=== PATIENT | female | born 1935 | race Caucasian/White ===

== ENCOUNTER 2024-06-25 23:45 | Emergency (ER) | payer OTHER, SELFPAY ==
[2024-06-25 23:47] VITALS: BP 156/109; BMI 21.9
[2024-06-26] MEDS: TORADOL 15 MG IV ×2 (01:07→12:08)
[2024-06-26] MEDS: LIDOCAINE 4% PATCH 1 PATCH TOPICAL (01:08)
[2024-06-26 01:17] LABS: % Basophils 0.6 % (0-2); % Eosinophils 0.6 % (0-6); % Immature Granulocytes 0.4 % (0-0.5); % Lymphocytes 18.2 % (20.5-51.1); % Monocytes 8.6 % (1.7-9.3); % Neutrophils 71.6 % (42.2-75.2); Absolute Lymphocytes 1.3 10^3/uL (1.2-3.4); Absolute Monocytes 0.6 10^3/uL (0.1-0.6); Hemoglobin 13.7 g/dL (12.0-16.0); Mean Corp Hgb Conc. 35.1 g/dL (33.0-37.0); Mean Corpuscular Hgb 33.3 pg (27.0-31.0); Mean Corpuscular Volume 94.7 fL (81.0-99.0); Mean Platelet Volume 8.9 fL (7.4-10.4); Nucleated Red Blood Cells % 0 %; Platelet Count 187 10^3/uL (130-400); Red Blood Cell Count 4.12 10^6/uL (4.20-5.40)
[2024-06-26 01:45] LABS: Blood Urea Nitrogen 11 mg/dl (7-17); Calcium 9.3 mg/dl (8.4-10.2); Carbon Dioxide 22 mmol/L (22-30); Chloride 98 mmol/L (98-107); Estimated Creatinine Clearance 39 ml/min; Glucose 106 mg/dl (70-99); Potassium 4.1 mmol/L (3.5-5.1); Sodium 131 mmol/L (135-145); eGFR > 60.00
[2024-06-26 02:03] VITALS: BP 148/86
--- NOTE | 2024-06-26 02:41 | ED.GENMED ---
History of Present Illness
General
Chief Complaint: Back Pain
Source: patient and ambulance crew
Exam Limitations: none
Time Seen by Provider: 06/26/24 00:18
Nursing documentation reviewed up to this point in time: agreed with
History of Present Illness
History of Present Illness:
88-year-old female presenting to the emergency department today from [facility] with concerns of mid upper back discomfort that started acutely when twisting after dinner took half a tramadol without relief. Feels similar to when she had a
compression fracture in April. Denies any chest pain shortness of breath nausea vomiting or any additional symptoms otherwise.
Past History
Past History
ED Past Medical History: Other (vertigo, eczema)
ED Past Surgical History: Appendectomy, Orthopedic and Urological
Social History
Tobacco: Non-smoker
Review of Systems
Review of Systems
Allergies reviewed?: Yes
All Other Systems: ROS reviewed and negative except as documented in HPI and ROS
Phy Exam
Physical Exam
Physical Exam:
GENERAL: Alert , in no apparent distress
EYE: pupils equal and reactive
NECK: Supple, no significant adenopathy.
ENT: o/p clr, mmm.
CARDIAC: Regular rate and rhythm .
LUNGS: Clear breath sounds bilaterally, no acute respiratory distress, no wheezes/rales/rhonchi
ABDOMEN: Soft, without focal tenderness, no r/g, no cvat
NEUROLOGICAL: Alert and oriented, no focal neuro deficits
SKIN: Warm and dry, skin intact.
MUSCULOSKELETAL: Reproducible pain to the mid thoracic back at midline no overlying skin changes no edema, well perfused.
PSYCH: Normal and appropriate interaction.
Course
Orders/Labs/Results
Orders:
Orders
06/26/24 00:59
Ketorolac [Toradol] 15 mg IV NOW STA
Lumbar Spine, 2 or 3 View [CR Lumbar Spine 2 Or 3 Views] Urgent
Comment:
Reason For Exam: low back pain hx of fx
Thoracic Spine 3 Views CR [CR Thoracic Spine 3 Views] Urgent
Comment:
Reason For Exam: upper back pain
06/26/24 01:00
Lidocaine [Lidocaine 4% Patch] 1 patch TOPICAL ONCE ONE
Apply Lidocaine patch(s) to:: back
06/26/24 01:09
BMP [Basic Metabolic Panel] Urgent
CBC/With Diff [Complete Blood Count/With Diff] Urgent
06/26/24 01:16
EKG [Electrocardiogram (*1)] Urgent
Reason for Study: Chest Pain
06/26/24 01:17
EKG- Treatment ONCE
06/26/24 02:41
Oxycodone [Roxicodone] 5 mg PO NOW STA
06/26/24 02:44
Case Management Consult ONCE
Case Management Consult: Discharge Planning
Pt Eval And Treat Urgent
Activity Level: Ambulate
06/26/24 11:52
Ketorolac [Toradol] 15 mg IV NOW STA
Abnormal Lab Results
06/26/24
01:09
RBC 4.12 L 10^6/uL
(4.20-5.40)
MCH 33.3 H pg
(27.0-31.0)
Lymphocytes % 18.2 L %
(20.5-51.1)
Sodium 131 L mmol/L
(135-145)
Glucose 106 H mg/dl
(70-99)
06/26/24 01:09
06/26/24 01:09
Vital Signs
Initial and Last Documented VS:
Initial Vital Signs
Temp Pulse Resp BP Pulse Ox
98 F 92 20 156/109 95
06/25/24 23:47 06/25/24 23:47 06/25/24 23:47 06/25/24 23:47 06/25/24 23:47
Last Documented Vital Signs
Temp Pulse Resp BP Pulse Ox
98 F 87 18 156/118 97
06/25/24 23:47 06/26/24 12:00 06/26/24 12:00 06/26/24 12:00 06/26/24 12:00
MDM/Problems Addressed
MDM/Problems Addressed:
88-year-old female presenting to the emergency department today with concerns of mid thoracic discomfort that was acute today after twisting awkwardly. Found to have a thoracic compression fracture at the exact point where she is describing
discomfort. This is likely explaining patient's symptoms. She was given Toradol with significant improvement of symptoms at rest. Patient tried to get up to ambulate felt severe pain once again. Patient does live in independent living, unable to
ambulate appropriately at this time due to severe pain was given additional oxycodone plan to admit for PT and case management assessment.
Update 1400 06/26/2204: Patient was reassessed with her daughter at bedside. She will go home with the patient to help her over the next few days. Case was discussed with neurosurgery as well as interventional radiology. They claim that she can
follow-up for further assessment. TLSO brace was ordered. Additional vertebroplasty could be considered and can follow-up with interventional radiology. Otherwise stable for discharge at this time return precautions given.
*Critical Care Note
Total Time (30-74mins, 75-104mins- exclusive of procedures): Not Applicable
ED Attending Note
-
Portions of this chart may have been created with voice recognition software.� Occasional wrong word or��sound alike� substitutions may have occurred due to the inherent limitations of voice recognition software.
Discharge Plan
Departure
Patient Disposition: Home (Routine Discharge)
Date of Disposition: 06/26/24
Time of Disposition: 14:39
Patient with high blood pressure during this ER visit?: No
Condition: Good
Covid-19: Not Applicable
Discharge Problem:
Compression fracture of thoracic vertebra
Instructions: Vertebral Compression Fracture ED
Prescriptions:
New
oxycodone 5 mg tablet
5 mg PO BID PRN (Reason: Pain) Qty: 7 0RF
lidocaine [Blue-Emu Lidocaine Patch] 4 % adhesive patch,medicated
1 patch topical Q24H PRN (Reason: Pain) Qty: 5 0RF
celecoxib [Celebrex] 200 mg capsule
200 mg PO BID PRN (Reason: Pain) Qty: 7 0RF
No Action
multivitamin 1 EACH tablet
1 ea PO DAILY
vitamin E 200 UNIT capsule
400 unit PO DAILY
cholecalciferol (vitamin D3) [Vitamin D3] 400 UNITS tablet
1,000 units PO DAILY
biotin 500 MCG capsule
1,000 mcg PO Q48H
fexofenadine [Elissa] 180 MG tablet
180 mg PO DAILY
famotidine 20 MG tablet
20 mg PO HS
acetaminophen 500 mg Tablet
1,000 mg PO TID
betamethasone dipropionate 0.05 % Ointment
1 applic TOPICAL DAILY
Icy Hot 30-10 % Cream
1 applic TOPICAL DAILY
Referrals:
Samia Barron MD [Active] - Follow up in 5-7 days
Arvin Corrales MD [Active] - Follow up in 5-7 days
Activity Restrictions/Additional Instructions:
You came to the emergency department today with concerns of back discomfort. You are found to have a compression fracture to T9. Please get the TLSO brace and follow-up closely as an outpatient. Return for any worsening, new or concerning
symptoms.
Interventions
Interventions:
*Risk Screen - Suicide Last Done: 06/25/24 23:47
*General Assessment Last Done: 06/25/24 23:47
*Neglect/Abuse Screening Last Done: 06/25/24 23:47
*ED COVID-19 Vaccine History Last Done: 06/25/24 23:56
ED-Musculoskeletal Assessment Last Done: 06/26/24 00:06
Discharge Date and Time
Print Language: BURUNDIAN
[2024-06-26] MEDS: ROXICODONE 5 MG PO (02:52)
[2024-06-26 06:08] VITALS: BP 164/108
--- NOTE | 2024-06-26 08:28 | CM ---
Addendum entered by Saritha Mosqueda RN 06/26/24 14:34:
Patient's daughter would prefer PT from [facility]. CM canceled [facility] referral.
Addendum entered by Saritha Mosqueda RN 06/26/24 12:05:
RHODA spoke with patient and she is refusing SNF placement. RHODA spoke with patient's daughter Karin who will provide supervision 24 hours in patient's apartment. Patient is agreeable to [facility]. Referral sent via [facility].
RHODA updated ED physician and bedside RN.
Addendum entered by Saritha Msoqueda RN 06/26/24 11:18:
RHODA spoke with Mary Kay from [facility] and she is able to accept patient today.
Addendum entered by Saritha Mosqueda RN 06/26/24 08:47:
RHODA spoke with Mary Kay from [facility]. She is confirming if a bed is available today at the [facility]. Mary Kay stated a bed would be available tomorrow.
Original Note:
RHODA reviewed medical records. Patient is a resident of [facility]. CM messaged Mary Kay at [facility] to confirm any bed availability.
[2024-06-26 10:00] VITALS: BP 159/104
[2024-06-26 11:57] VITALS: BP 159/118
[2024-06-26 12:00] VITALS: BP 156/118
--- NOTE | 2024-06-28 10:29 | CM ---
Call from Mary Kay/[facility] noting referral was not received for [facility] to be set up
Referral sent via [facility]
== END 2024-06-26 15:25 | disposition home or self-care (01) ==
LOC: EMR 23:45
PROVIDERS: Physician Assistant; EMERGENCY PHYSICIAN Emergency Medicine; FAMILY PHYSICIAN Internal Medicine Geriatric Medicine
DX: M80.08XA Age-related osteoporosis with current pathological fracture, vertebra(e), initial encounter for fracture (principal); Z60.2 Problems related to living alone; Z90.49 Acquired absence of other specified parts of digestive tract
CPT/HCPCS: 99283; 96374; 96376; 72072; 72100; 80048; 85025; 93005

== ENCOUNTER 2024-08-25 01:38 | Observation (INO) | payer OTHER, SELFPAY ==
[2024-08-24 19:00] VITALS: BP 135/98
[2024-08-24 19:28] LABS: ALT (SGPT) 22 U/L (0-35); AST (SGOT) 32 U/L (14-36); Albumin 4.4 g/dl (3.5-5.0); Alkaline Phosphatase 66 U/L (38-126); Blood Urea Nitrogen 10 mg/dl (7-17); Calcium 9.9 mg/dl (8.4-10.2); Carbon Dioxide 26 mmol/L (22-30); Chloride 99 mmol/L (98-107); Glucose 135 mg/dl (70-99); Potassium 3.7 mmol/L (3.5-5.1); Sodium 137 mmol/L (135-145); Total Bilirubin 1.4 mg/dl (0.2-1.3); Total Protein 6.9 g/dl (6.3-8.2); eGFR > 60.00
[2024-08-24 22:28] VITALS: BMI 20.9
[2024-08-24 22:48] VITALS: BP 151/94
[2024-08-24 22:58] LABS: % Basophils 0.5 % (0-2); % Eosinophils 0.3 % (0-6); % Immature Granulocytes 0.3 % (0-0.5); % Lymphocytes 14.9 % (20.5-51.1); % Monocytes 10.3 % (1.7-9.3); % Neutrophils 73.7 % (42.2-75.2); Absolute Basophils 0.1 10^3/uL (0-0.2); Absolute Lymphocytes 1.5 10^3/uL (1.2-3.4); Absolute Neutrophils 7.3 10^3/uL (1.4-6.5); Hematocrit 36.5 % (37.0-47.0); Hemoglobin 12.8 g/dL (12.0-16.0); Mean Corp Hgb Conc. 35.1 g/dL (33.0-37.0); Mean Corpuscular Hgb 34.1 pg (27.0-31.0); Mean Corpuscular Volume 97.3 fL (81.0-99.0); Mean Platelet Volume 9.3 fL (7.4-10.4); Nucleated Red Blood Cells % 0 %; Platelet Count 189 10^3/uL (130-400); Red Blood Cell Count 3.75 10^6/uL (4.20-5.40); Red Cell Dist. Width 13.3 % (11.5-14.5); White Blood Cell Count 9.9 10^3/uL (4.8-10.8)
[2024-08-24 23:45] VITALS: BP 139/101
[2024-08-24 23:46] VITALS: BP 144/106
--- NOTE | 2024-08-25 00:09 | ED.GENMED ---
History of Present Illness
General
Chief Complaint: Back Pain
Source: patient
Exam Limitations: none
Time Seen by Provider: 08/24/24 23:15
Nursing documentation reviewed up to this point in time: agreed with
History of Present Illness
History of Present Illness:
80-year-old female past medical history of chronic back pain compression fractures presenting to the emergency department from the pain management clinic after she was sent in for expedited workup due to significant ongoing pain lack of oral intake
secondary to pain. On arrival she claims she feels okay at this point has been taking oxycodone for discomfort at home as well as Tylenol. She is not requesting any pain medication at this time.
Past History
Past History
ED Past Medical History: Other (vertigo, eczema)
ED Past Surgical History: Appendectomy, Orthopedic and Urological
Social History
Tobacco: Non-smoker
Review of Systems
Review of Systems
Allergies reviewed?: Yes
All Other Systems: ROS reviewed and negative except as documented in HPI and ROS
Phy Exam
Physical Exam
Physical Exam:
GENERAL: Alert , in no apparent distress
EYE: pupils equal and reactive
NECK: Supple, no significant adenopathy.
ENT: o/p clr, mmm.
CARDIAC: Regular rate and rhythm .
LUNGS: Clear breath sounds bilaterally, no acute respiratory distress, no wheezes/rales/rhonchi
ABDOMEN: Soft, without focal tenderness, no r/g, no cvat
NEUROLOGICAL: Alert and oriented, no focal neuro deficits
SKIN: Warm and dry, skin intact.
MUSCULOSKELETAL: No edema, well perfused.
PSYCH: Normal and appropriate interaction.
Course
Orders/Labs/Results
Orders:
Orders
08/24/24 19:10
C-Reactive Protein Urgent
Comment: ADDED
CMP [Comprehensive Metabolic Panel] Urgent
TSH Reflex To Free T4 Urgent
Comment: ADDED
08/24/24 22:30
Complete Blood Count/With Diff Urgent
Erythrocyte Sed Rate Urgent
Comment: ADDED
08/25/24 00:08
Add On- LAB Urgent
Tests Added?: tsh free t4, crp esr
08/25/24 01:18
Admit/Transfer Patient As Directed
Co-Sign Provider:
Level of Care: Observation services
Assign to:: Medical/Surgical
Physician / Group: Lai
Diagnosis: Back pain
Code Status As Directed
Resuscitation Status: Full Code
PRN Pain Medication Management As Directed
May give lesser potent ordered pain med per pt: Yes
preference::
Protocol:: Medication orders for pain may be administered in a
manner that supports deferring to patient preference
when the pt is:
- Requesting an ordered lesser potent pain medication.
Least to most potent pain medications are defined
as: acetaminophen < NSAID < tramadol < opioids
(morphine, oxycodone, hydromorphone).
- Requesting a lesser dose of the same medication IF
ORDERED.
- Requesting a less intrusive route of administration
if both routes are prescribed by the provider (PO <
IV).
08/25/24 05:00
MRSA Screen Routine
COLIN Source: Nose
Specimen Description:
Abnormal Lab Results
08/24/24 08/24/24
19:10 22:30
RBC 3.75 L 10^6/uL
(4.20-5.40)
Hct 36.5 L %
(37.0-47.0)
MCH 34.1 H pg
(27.0-31.0)
Absolute Neuts (auto) 7.3 H 10^3/uL
(1.4-6.5)
Absolute Monos (auto) 1.0 H 10^3/uL
(0.1-0.6)
Lymphocytes % 14.9 L %
(20.5-51.1)
Monocytes % 10.3 H %
(1.7-9.3)
ESR 23 H mm/hour
(0-20)
Glucose 135 H mg/dl
(70-99)
Total Bilirubin 1.4 H mg/dl
(0.2-1.3)
08/24/24 22:30
08/24/24 19:10
Vital Signs
Initial and Last Documented VS:
Initial Vital Signs
Temp Pulse Resp BP Pulse Ox
98.5 F 107 18 135/98 98
08/24/24 19:00 08/24/24 19:00 08/24/24 19:00 08/24/24 19:00 08/24/24 19:00
Last Documented Vital Signs
Temp Pulse Resp BP Pulse Ox
98.5 F 90 23 144/106 94
08/24/24 19:00 08/25/24 00:36 08/25/24 00:36 08/25/24 00:36 08/25/24 00:36
MDM/Problems Addressed
MDM/Problems Addressed:
88-year-old female presenting to the emergency department today with concerns of chronic back pain seen by pain management recommending MRI and further inpatient workup. On arrival here patient well-appearing no distress labs unremarkable admitted
for MRI and further assessment
*Critical Care Note
Total Time (30-74mins, 75-104mins- exclusive of procedures): Not Applicable
ED Attending Note
-
Portions of this chart may have been created with voice recognition software.� Occasional wrong word or��sound alike� substitutions may have occurred due to the inherent limitations of voice recognition software.
Discharge Plan
Departure
Patient Disposition: Admit
Date of Disposition: 08/25/24
Time of Disposition: 01:29
Admit to: Med/Surg
Admit to doctor: Lai
Presentation/result/management discussed w/ accepting MD/DO: Hospitalist
Patient with high blood pressure during this ER visit?: No
Condition: Good
Covid-19: Not Applicable
Discharge Problem:
Low back pain
Prescriptions:
No Action
famotidine [Pepcid] 20 mg Tablet
20 mg PO BID
oxycodone 5 mg Tablet
5 mg PO BID PRN (Reason: Pain)
Referrals:
Brian Ritchie MD [Family Provider] -
Interventions
Interventions:
*Risk Screen - Suicide Last Done: 08/24/24 19:00
*General Assessment Last Done: 08/24/24 19:00
*Neglect/Abuse Screening Last Done: 08/24/24 19:00
*ED- Fall Risk Assessment Last Done: 08/24/24 19:00
*ED COVID-19 Vaccine History Last Done: 08/24/24 19:00
ED-Musculoskeletal Assessment Last Done: 08/24/24 22:51
Discharge Date and Time
Print Language: MARTINIQUAIS
[2024-08-25 00:36] VITALS: BP 144/106
[2024-08-25 00:58] LABS: Erythrocyte Sed Rate 23 mm/hour (0-20)
--- NOTE | 2024-08-25 01:22 | HPS.HSE ---
Family Physician
-
Family Physician: Brian Ritchie
Chief Complaint
-
Back Pain
History of Present Illness
Patient is an 88y F with PMH significant for GERD and prior vertebral compression fractures who presents to ED complaining of back pain. Patient states that she has had upper back pain since early July. She denies any significant fall or
trauma. She notes that he pain started when she 'twisted wrong' in her chair. She has had similar events in the past - including lumbar compression fracture in April.
Patient has had persistent / severe pain with this most recent episode.
She was seen today by Pain Management (Dr. Powers) and sent to the ED for admission / further evaluation.
Medical History
Past Medical History
Past Medical History: Reports Other
Additional Past Medical History:
GERD
Bladder Prolapse
Osteoporosis
Past Surgical History: Reports Other
Additional Past Surgical History:
Right TKA
Right Hip ORIF
Appendectomy
Bladder Sling
Social History
Tobacco: Non-smoker
Alcohol: Occasional
Drug: None
Family History
Family History: Not pertinent
Allergies / Home Medications
Allergies reflects when Allergies were last updated in [facility].
Home Medications with original date entered in [facility]
Allergy/Medication List:
Allergies
Allergy/AdvReac Type Severity Reaction Status Date / Time
codeine [Codeine] Allergy HALUCINATIO Verified 08/24/24 19:02
NS
prednisone [Prednisone] Allergy PHLIBITIS Verified 08/24/24 19:02
Home Medications
famotidine 20 mg tablet (Pepcid) 20 mg PO BID 08/25/24
oxycodone 5 mg tablet 5 mg PO BID PRN Pain 08/25/24
Review of Systems
-
History Source: Patient
A 12 point ROS was completed and negative except as noted: Yes
Constitutional: Reports Weight Loss (18 lbs in one month); Denies Fever or Chills
EENT: Denies Sore Throat
Respiratory: Denies Cough or Trouble Breathing
Cardiac: Denies Chest Pain or Palpitations
Abdomen/GI: Denies Abdominal Pain, Nausea, Vomiting or Diarrhea
: Denies Dysuria, Frequency or Flank Pain
Musculoskeletal: Reports Other (Back pain); Denies Edema
Neurological: Denies Dizzy, Headache, Weakness or Numbness
Physical Exam
Vital Signs
Vital Signs
Temp Pulse Resp BP Pulse Ox
98.5 F 90 23 144/106 94
08/24/24 19:00 08/25/24 00:36 08/25/24 00:36 08/25/24 00:36 08/25/24 00:36
Physical Exam
General: Other (Frail elderly female in no acute distress.)
HEENT: Moist mucous membranes and PERRLA
Respiratory: Clear; No Wheezes, Rales or Rhonchi
Cardiac: S1/S2 and Regular Rhythm; No Murmur
GI: Soft, Non Tender, Normal Bowel Sounds and Other (Softly distended.)
Musculoskeletal: No Clubbing, No Cyanosis, No Edema and Other (Prominent T4 spinous process. No appreciated spinal tenderness.)
Neuro: AO x 3 and Nonfocal/grossly intact
Laboratory Results
-
08/24/24 22:30
08/24/24 19:10
Laboratory Results
Total Bilirubin 1.4 mg/dl (0.2-1.3) H 08/24/24 19:10
AST 32 U/L (14-36) 08/24/24 19:10
ALT 22 U/L (0-35) 08/24/24 19:10
Alkaline Phosphatase 66 U/L (38-126) 08/24/24 19:10
Impression/Plan
-
A/P: Patient is an 88y F with PMH significant for GERD and osteoporosis who presents to ED complaining of back pain for about one month.
Intractable Back Pain
Osteoporosis
- Observe overnight for further evaluation and treatment.
- Pain Management recommends MRI to evaluate for acute compression fracture +/- kyphoplasty if indicated.
- Continue medications for pain control and adjust as needed.
- PT / OT evaluations.
- Follow for any new / worsening issues.
GERD
- Stable. Continue BID Pepcid.
DVT Prophylaxis: SCDs
Code Status: Full
[2024-08-25 03:24] LABS: TSH Reflex To Free T4 1.77 uIU/ml (0.47-4.68)
--- NOTE | 2024-08-25 03:27 | DOWNTIME ---
There was a [employer] Downtime on 08/25/2024 from 0200 to 08/26/2023 at 0318 . Downtime documentation of patient's care, including medication administrations, has been reconciled in the electronic record per guidelines. Refer to the
patient's paper chart under the miscellaneous tab to see printed paper medication records and downtime forms.
--- NOTE | 2024-08-25 03:30 | DOWNTIME ---
There was a [employer] Client [employer] Downtime on 08/25/2024 from 0200 to 08/26/2023 at 0318 . Downtime documentation of patient's care, including medication administrations, has been reconciled in the electronic record per guidelines. Refer to the
patient's paper chart under the miscellaneous tab to see printed paper medication records and downtime forms.
[2024-08-25 06:10] LABS: Hematocrit 32.1 % (37.0-47.0); Hemoglobin 11.5 g/dL (12.0-16.0); Mean Corp Hgb Conc. 35.8 g/dL (33.0-37.0); Mean Corpuscular Hgb 34.3 pg (27.0-31.0); Mean Corpuscular Volume 95.8 fL (81.0-99.0); Mean Platelet Volume 9.5 fL (7.4-10.4); Platelet Count 170 10^3/uL (130-400); Red Blood Cell Count 3.35 10^6/uL (4.20-5.40); Red Cell Dist. Width 13.4 % (11.5-14.5); White Blood Cell Count 8.5 10^3/uL (4.8-10.8)
[2024-08-25 06:41] LABS: Blood Urea Nitrogen 8 mg/dl (7-17); Calcium 9.2 mg/dl (8.4-10.2); Carbon Dioxide 23 mmol/L (22-30); Chloride 104 mmol/L (98-107); Estimated Creatinine Clearance 39 ml/min; Glucose 100 mg/dl (70-99); Potassium 3.8 mmol/L (3.5-5.1); Sodium 135 mmol/L (135-145); eGFR > 60.00
[2024-08-25] MEDS: COLACE 100 MG PO (09:50)
[2024-08-25] MEDS: TYLENOL 1000 MG PO (09:50)
[2024-08-25] MEDS: PEPCID 20 MG PO ×2 (09:50→20:23)
[2024-08-25 11:50] VITALS: PULSE 98; O2SAT 95
[2024-08-25] MEDS: ROXICODONE 2.5 MG PO ×2 (11:53→20:23)
--- NOTE | 2024-08-25 12:05 | W.PN.HOSP.TC ---
Today's Communication/Plan
-
MR Spine
pain control
PT/OT
HSQ
Assessment / Plan
Assessment / Plan
Physical Exam
General: Other (Frail elderly female in no acute distress.)
HEENT: Moist mucous membranes and PERRLA
Respiratory: Clear; No Wheezes, Rales or Rhonchi
Cardiac: S1/S2 and Regular Rhythm; No Murmur
GI: Soft, Non Tender, Normal Bowel Sounds and Other (Softly distended.)
Musculoskeletal: No Clubbing, No Cyanosis, No Edema and Other (Prominent T4 spinous process. No appreciated spinal tenderness.)
Neuro: AO x 3 and Nonfocal/grossly intact
A/P: Patient is an 88y F with PMH significant for GERD and osteoporosis who presents to ED complaining of back pain for about one month.
Intractable Back Pain
Osteoporosis
- Pain Management recommends MRI to evaluate for acute compression fracture +/- kyphoplasty if indicated.
- Continue medications for pain control and adjust as needed.
- PT / OT evaluations.
- Follow for any new / worsening issues.
GERD
- Stable. Continue BID Pepcid.
DVT Prophylaxis: HSQ
Code Status: Full
Anticipated Discharge: 24 - 48 hours
Subjective/Interval History
-
Date of Service: August 25, 2024
No acute events overnight
Objective Data
-
Labs:
Laboratory Results
08/25/24
05:19
WBC 8.5
Hgb 11.5 L
Hct 32.1 L
Plt Count 170
Sodium 135
Potassium 3.8
Chloride 104
Carbon Dioxide 23
BUN 8
Creatinine 0.5 L
Glucose 100 H
Calcium 9.2
Vital Signs:
Vital Signs
Temp Pulse Resp BP Pulse Ox
98.5 F 98 18 144/106 94
08/24/24 19:00 08/25/24 08:15 08/25/24 08:15 08/25/24 00:36 08/25/24 00:36
I&O
08/24/24 08/25/24 08/26/24
06:59 06:59 06:59
Intake Total 120 / 120
Balance 120 / 120
Review of Systems
-
History Source: Patient
All other systems: Not reviewed unless documented
Data Reviewed
-
Labs: Labs Reviewed by me
--- NOTE | 2024-08-25 12:31 | CM ---
Reviewed the chart notes and spoke with the patient at the bedside. The patient is admitted under observational status. The VELA letter was provided and explained. The patient had no questions regarding the letter.
The patient resides alone in an independent apartment at [facility]. The patient has a rolling walker and shower chair. The patient has had [facility] in the past, but no SNF. The patient confirmed her pharmacy of choice is [facility]. CM continues to be available to patient/family and is monitoring medical plan for needs at discharge.
Plan: Discharge plans will depend on the patient's progress. PT evaluation pending.
[2024-08-25 15:17] VITALS: BP 121/83
[2024-08-25] MEDS: ATIVAN 0.5 MG PO (15:35)
[2024-08-25] MEDS: TYLENOL PO ×2 (17:29→21:42)
[2024-08-25] MEDS: HEPARIN 5000 UNITS SC ×2 (17:32→23:24)
[2024-08-25] MEDS: COLACE PO (20:18)
[2024-08-25] MEDS: FLUSH (NSS) 1 FLUSH IV (20:24)
[2024-08-25 23:33] VITALS: BP 141/92
[2024-08-26 04:47] VITALS: BMI 19.8
[2024-08-26] MEDS: ROXICODONE 2.5 MG PO (04:49)
[2024-08-26 07:34] VITALS: BP 122/88
[2024-08-26] MEDS: TYLENOL PO (08:43)
[2024-08-26] MEDS: COLACE 100 MG PO (08:44)
[2024-08-26] MEDS: PEPCID 20 MG PO (08:44)
[2024-08-26] MEDS: HEPARIN 5000 UNITS SC (08:44)
[2024-08-26 09:15] LABS: Hematocrit 32.8 % (37.0-47.0); Hemoglobin 11.6 g/dL (12.0-16.0); Mean Corp Hgb Conc. 35.4 g/dL (33.0-37.0); Mean Corpuscular Hgb 34.4 pg (27.0-31.0); Mean Corpuscular Volume 97.3 fL (81.0-99.0); Mean Platelet Volume 9.8 fL (7.4-10.4); Platelet Count 179 10^3/uL (130-400); Red Blood Cell Count 3.37 10^6/uL (4.20-5.40); Red Cell Dist. Width 13.2 % (11.5-14.5); White Blood Cell Count 5.6 10^3/uL (4.8-10.8)
[2024-08-26 09:41] LABS: Blood Urea Nitrogen 7 mg/dl (7-17); Calcium 8.8 mg/dl (8.4-10.2); Carbon Dioxide 25 mmol/L (22-30); Chloride 103 mmol/L (98-107); Estimated Creatinine Clearance 39 ml/min; Glucose 92 mg/dl (70-99); Potassium 3.9 mmol/L (3.5-5.1); Sodium 136 mmol/L (135-145); eGFR > 60.00
--- NOTE | 2024-08-26 10:42 | CM ---
CM following re: discharge planning.
Reviewed pt's chart, met with pt.
PT and OT evaluations noted - Home PT/OT recommended. Pt is aware, expressed her agreement and she requested [facility]. A referral to [facility] made. Pt stated she feels she will be discharged home today and her daughter will transport
home.
Pt stated she lives alone in an independent apartment at [facility], has supportive daughter. Pt reports she has cleaning lady once a week.
Please fax discharge instructions to [facility] at [phone]
D/C plan: home with [facility] and family support. Daughter to transport
--- NOTE | 2024-08-26 11:27 | PTCARENOTE ---
Pt OOB and ambulating around room w/o issue. Pt crying and upset that she will not be having back surgery today. Daughter on her way in to take pt home once discharge orders are in.
--- NOTE | 2024-08-26 12:57 | W.PN.HOSP.TC ---
Addendum entered and electronically signed by Kenroy Maya MD 08/28/24 15:00:
[id number]
Original Note:
Today's Communication/Plan
-
pt/ot
pain control
NSG, pain management, and PCP outpt
Assessment / Plan
Assessment / Plan
Physical Exam
General: Other (Frail elderly female in no acute distress.)
HEENT: Moist mucous membranes and PERRLA
Respiratory: Clear; No Wheezes, Rales or Rhonchi
Cardiac: S1/S2 and Regular Rhythm; No Murmur
GI: Soft, Non Tender, Normal Bowel Sounds and Other (Softly distended.)
Musculoskeletal: No Clubbing, No Cyanosis, No Edema and Other (Prominent T4 spinous process. No appreciated spinal tenderness.)
Neuro: AO x 3 and Nonfocal/grossly intact
A/P: Patient is an 88y F with PMH significant for GERD and osteoporosis who presents to ED complaining of back pain for about one month.
Intractable Back Pain
Osteoporosis
-MRI Spine:
Multiple thoracolumbar compression fractures, acute or subacute at T7, T8, T9, and L2, and chronic T12 and L1. Mild retropulsion of T8 and T9 but no significant secondary spinal canal stenosis.
patient able to ambulate, no evidence of compression syndrome
- Continue medications for pain control and adjust as needed.
- PT / OT evaluations.
- Follow for any new / worsening issues.
-Spoke to NSG - if able to ambulate - can treat conservatively and attempt kyphoplasty outpt if all else fails
GERD
- Stable. Continue BID Pepcid.
DVT Prophylaxis: HSQ
Code Status: Full
More than 30 minutes spent in discharge including
Final examination of the patient
Summarizing hospital stay
Instructions for continuing care to all relevant caregivers
Preparation of discharge records, prescriptions, and referral forms
Total time spent (in minutes): 36
Anticipated Discharge: Today
Subjective/Interval History
-
Date of Service: August 26, 2024
no acute events
Objective Data
-
Labs:
Laboratory Results
08/26/24
08:26
WBC 5.6
Hgb 11.6 L
Hct 32.8 L
Plt Count 179
Sodium 136
Potassium 3.9
Chloride 103
Carbon Dioxide 25
BUN 7
Creatinine 0.5 L
Glucose 92
Calcium 8.8
Vital Signs:
Vital Signs
Temp Pulse Resp BP Pulse Ox
98.5 F 88 18 122/88 95
08/26/24 07:34 08/26/24 07:34 08/26/24 07:34 08/26/24 07:34 08/26/24 07:34
I&O
08/25/24 08/26/24 08/27/24
06:59 06:59 06:59
Intake Total 120 / 120 480 / 480 60 / 60
Balance 120 / 120 480 / 480 60 / 60
Review of Systems
-
History Source: Patient
All other systems: Not reviewed unless documented
Data Reviewed
-
MRI: Report Reviewed by me
Labs: Labs Reviewed by me
--- NOTE | 2024-08-26 13:03 | W.DS.TRANS ---
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
-
Discharge Instructions:
Discharge Diagnosis/Procedures Intractable Back Pain
Multiple thoracolumbar compression fractures,
acute or subacute at T7, T8, T9, and L2, and
chronic T12 and L1. Mild retropulsion of T8 and
T9 but no significant secondary spinal canal
stenosis.
Diet Low Cholesterol,Low Fat
Activity As tolerated
Instructions:
Stand-Alone Forms:
Changes to Home Medications: No
Discharge Medications:
DC Medications w/original date entered in [facility]
L.acidophilus,rhamnosus-B.breve-S.thermophilus 3 billion cell chew tab 1 tab PO DAILY Gastrointestinal Issue 08/25/24
acetaminophen 160 mg oral powder packet 160 mg PO TIDPRN PRN mild pain 08/25/24
carboxymethylcellulose 0.5 %-glycerin 0.9 % eye drops (Refresh Optive) 1 drp BOTH EYES BID Eye Condition 08/25/24
cholecalciferol (vitamin D3) 25 mcg (1,000 unit) chewable tablet (Vitamin D3) 25 mcg PO DAILY Supplement 08/25/24
docusate sodium 100 mg capsule (Colace) 100 mg PO DAILYPRN PRN constipation 08/25/24
famotidine 20 mg tablet (Pepcid) 20 mg PO BID Gastrointestinal Issue 08/25/24
multivitamin with minerals-folic acid 80 mcg chewable tablet 1 tab PO DAILY Supplement 08/25/24
oxycodone 5 mg tablet 2.5 mg PO BID Pain 08/25/24
sennosides 8.6 mg tablet (senna) 8.6 mg PO BIDPRN PRN constipation 08/25/24
vitamin E (dl, acetate) 400 unit chewable tablet 400 unit PO DAILY Supplement 08/25/24
Home Medication Changes
NA
Pending Results: Yes
[2024-08-26 13:20] VITALS: BP 128/90
== END 2024-08-26 13:35 | disposition home health service (06) ==
LOC: 1 ACUTE 01:38
PROVIDERS: Student in an Organized Health Care Education/Training Program; ADMITTING PHYSICIAN Hospitalist; ATTENDING PHYSICIAN Internal Medicine; EMERGENCY PHYSICIAN Emergency Medicine; FAMILY PHYSICIAN Internal Medicine Geriatric Medicine
DX: M80.08XA Age-related osteoporosis with current pathological fracture, vertebra(e), initial encounter for fracture (principal); M54.50 Low back pain, unspecified; G89.29 Other chronic pain; K21.9 Gastro-esophageal reflux disease without esophagitis; Z90.49 Acquired absence of other specified parts of digestive tract; Z87.310 Personal history of (healed) osteoporosis fracture; Z96.651 Presence of right artificial knee joint; Z88.8 Allergy status to other drugs, medicaments and biological substances; Z88.5 Allergy status to narcotic agent; Z60.2 Problems related to living alone
CPT/HCPCS: 72146; 80048; 80053; 84443; 85025; 85027; 85652; 86140; 87070; 97162; 99285; G0378

== ENCOUNTER 2024-12-29 19:31 | Emergency (ER) | payer OTHER, SELFPAY ==
[2024-12-29 19:35] VITALS: BP 129/81
[2024-12-29 19:52] LABS: Hematocrit 36.5 % (37.0-47.0); Hemoglobin 12.7 g/dL (12.0-16.0); Mean Corp Hgb Conc. 34.8 g/dL (33.0-37.0); Mean Corpuscular Volume 99.2 fL (81.0-99.0); Nucleated Red Blood Cells % 0 %; Platelet Count 176 10^3/uL (130-400); Red Cell Dist. Width 12.4 % (11.5-14.5)
[2024-12-29 20:10] LABS: ALT (SGPT) 20 U/L (0-35); AST (SGOT) 34 U/L (14-36); Albumin 4.2 g/dl (3.5-5.0); Alkaline Phosphatase 47 U/L (38-126); Blood Urea Nitrogen 15 mg/dl (7-17); Calcium 9.4 mg/dl (8.4-10.2); Carbon Dioxide 27 mmol/L (22-30); Chloride 101 mmol/L (98-107); Glucose 108 mg/dl (70-99); Potassium 3.8 mmol/L (3.5-5.1); Sodium 134 mmol/L (135-145); Total Protein 6.6 g/dl (6.3-8.2); eGFR > 60.00
--- NOTE | 2024-12-29 22:03 | ED.GENMED ---
History of Present Illness
General
Chief Complaint: Dizziness
Source: patient and family
Exam Limitations: none
Time Seen by Provider: 12/29/24 21:25
Nursing documentation reviewed up to this point in time: agreed with
History of Present Illness
History of Present Illness:
89-year-old female from [facility] presents with a syncopal event while on the toilet having a bowel movement she felt dizzy, with a headache hit her medical alert joseph, daughter came to check on her and found her passed out patient now is
awake alert and oriented moving all extremities without complaints she has no history of heart disease no history of diabetes no dysuria no frequency no chest pains
Past History
Past History
ED Past Medical History: Other (vertigo, eczema)
ED Past Surgical History: Appendectomy, Orthopedic and Urological
Social History
Tobacco: Non-smoker
Alcohol: None
Drug: None
Personal:
Living: alone
Employment: Retired
Review of Systems
Review of Systems
All Other Systems: Not applicable
Constitutional: Denies fever or fatigue
EENT: Reports no symptoms
Respiratory: Reports no symptoms
Cardiac: Reports syncope
ABD/GI: Denies nausea or vomiting
Neurological: Reports dizzy and headache
Endocrine: Reports no symptoms
Phy Exam
Physical Exam
Physical Exam:
Physical Exam
General: no apparent distress, not acutely ill
Neck: No tongue bite no posterior neck pain
Heart: Regular
Lungs: no acute respiratory distress. clear bilaterally
Abdomen: Nontender
Neuro: alert and oriented. no focal neurological deficits normal [id number] bilaterally
Skin: no rash
Psychiatric: well kept. interactive and cooperative
Extremities: no edema. No calf pain
Course
Orders/Labs/Results
Orders:
Orders
12/29/24 19:34
EKG [Electrocardiogram (*1)] Urgent
Reason for Study: Syncope
EKG- Treatment ONCE
12/29/24 19:41
CBC/With Diff [Complete Blood Count/With Diff] Urgent
CMP [Comprehensive Metabolic Panel] Urgent
12/29/24 21:37
CT Head W/o Iv Contrast Urgent
Comment:
Reason For Exam: dizzy headache
Orthostatic VS- Treatment ONCE
12/29/24 21:40
Orthostatic VS- Treatment ONCE
Abnormal Lab Results
12/29/24
19:41
RBC 3.68 L 10^6/uL
(4.20-5.40)
Hct 36.5 L %
(37.0-47.0)
MCV 99.2 H fL
(81.0-99.0)
MCH 34.5 H pg
(27.0-31.0)
Sodium 134 L mmol/L
(135-145)
Glucose 108 H mg/dl
(70-99)
12/29/24 19:41
12/29/24 19:41
Vital Signs
Initial and Last Documented VS:
Initial Vital Signs
Temp Pulse Resp BP Pulse Ox
98 F 88 15 129/81 92
12/29/24 19:35 12/29/24 19:35 12/29/24 19:35 12/29/24 19:35 12/29/24 19:35
Last Documented Vital Signs
Temp Pulse Resp BP Pulse Ox
98 F 88 15 169/107 93
12/29/24 19:35 12/29/24 19:35 12/29/24 19:35 12/29/24 22:12 12/29/24 22:12
MDM/Problems Addressed
Differential Diagnosis Includes:
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
MDM/Problems Addressed:
Syncope after having a bowel movement
Chronic conditions affecting care:
GERD
*Radiology
Radiology exam reviewed: radiology read reviewed
*Pulse Oximetry
SaO2: 96
Oxygen Mode of Delivery: Room air
Patient hypoxic: no
*EKG
Interpreted by ED Provider?: Yes
Interpretation: normal
Comparison EKG: no comparison EKG present
Heart Rate: 78
Rate: normal
Rhythm: sinus
Ischemia: non-specific ST changes
*Senior Mobile Developer Interpretation
Rate: normal
Interpretation: normal
Heart Rate: 78
Rhythm: sinus
*Critical Care Note
Total Time (30-74mins, 75-104mins- exclusive of procedures): Not Applicable
Update Note
Update Note:
Update sounds like syncope associated with defecation, has a nonfocal neurologic exam now will check orthostatics EKG noted labs noted daughter is concerned she could have had a stroke I think is unlikely will check CT of the head
11 PM update patient is not orthostatic, CT head noted
ED Attending Note
-
Portions of this chart may have been created with voice recognition software.� Occasional wrong word or��sound alike� substitutions may have occurred due to the inherent limitations of voice recognition software.
Discharge Plan
Departure
Patient Disposition: Home (Routine Discharge)
Date of Disposition: 12/29/24
Time of Disposition: 22:56
Patient with high blood pressure during this ER visit?: Yes
Condition: Good
Covid-19: Not Applicable
Discharge Problem:
Syncope
Instructions: Fainting in adults - ED (DC)
Prescriptions:
No Action
famotidine [Pepcid] 20 mg Tablet
20 mg PO BID
vitamin E (dl, acetate) 400 unit Tablet,Chewable
400 unit PO DAILY
Refresh Optive 0.5-0.9 % Drops
1 drp BOTH EYES BID
cholecalciferol (vitamin D3) [Vitamin D3] 25 mcg (1,000 unit) Tablet,Chewable
25 mcg PO DAILY
multivit with min-folic acid 80 mcg Tablet,Chewable
1 tab PO DAILY
acetaminophen 160 mg Powder In Packet
160 mg PO TIDPRN PRN (Reason: mild pain)
Referrals:
UNKNOWN - PT DOES,NOT KNOW [Family Provider]
Activity Restrictions/Additional Instructions:
Drink plenty of fluids
Interventions
Interventions:
*Risk Screen - Suicide Last Done: 12/29/24 19:35
*General Assessment Last Done: 12/29/24 19:35
*Neglect/Abuse Screening Last Done: 12/29/24 19:35
*ED- Fall Risk Assessment Last Done: 12/29/24 19:35
*ED COVID-19 Vaccine History Last Done: 12/29/24 22:06
ED- Neurological Assessment Last Done: 12/29/24 22:06
ED- Cardiac Assessment Last Done: 12/29/24 22:06
Discharge Date and Time
Print Language: UKRAINIAN
[2024-12-29 22:07] VITALS: BP 150/94
[2024-12-29 22:09] VITALS: BP 162/110
[2024-12-29 22:10] VITALS: BP 155/103
[2024-12-29 22:12] VITALS: BP 169/107
[2024-12-29 22:14] VITALS: BP 150/94; BP 155/103; BP 169/107; PULSE 100; PULSE 98; PULSE 99
[2024-12-29 22:15] VITALS: BMI 21.9
== END 2024-12-29 23:35 | disposition home or self-care (01) ==
LOC: EMR 19:31
PROVIDERS: EMERGENCY PHYSICIAN Emergency Medicine
DX: R55 Syncope and collapse (principal); R03.0 Elevated blood-pressure reading, without diagnosis of hypertension; K21.9 Gastro-esophageal reflux disease without esophagitis
CPT/HCPCS: 99284; 70450; 80053; 85025; 93005